=== PATIENT | male | born 1930 | race Caucasian/White ===

== ENCOUNTER 2016-07-22 17:51 | Inpatient (IN) | payer OTHER ==
[~2016-07-22] VITALS: Ht 175.3 cm; Wt 67.3 kg
--- NOTE | ~2016-07-22 | H ---
[facility] [place] [address] HISTORY AND PHYSICAL Name: FELICITAROBERTO [place] Room #: 537-P ADM IN M.R.#: [id number] Admission: 07/22/16 Attend Phys: Wolf Demarco MD Discharge: Date of : 31 Report #: [id number] THIS REPORT FOR: //name// CC: Doug Demarco DATE OF SERVICE: 07/23/2016 DATE OF ADMISSION: 07/22/2016 CHIEF COMPLAINT: Right knee pain. HISTORY OF PRESENT ILLNESS: The patient is an 86-year-old male who states he fell out of his home. There is a chairlift and it was not in a proper position for him to get on to it and he fell about a little over 2 feet on to the ground. He did not strike his head. He did not lose conscious. He tried to catch himself and landed on his right foot causing pain in the right knee. PAST MEDICAL HISTORY: Significant for: 1. Atrial fibrillation. 2. Congestive heart failure. 3. He has an ICD placement. 4. Coronary artery disease, bypass x 2 in 2009. 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 6. Glaucoma. 7. Corneal transplant. 8. He has had a right knee surgery with a spacer in the past. 9. Melanoma right ear. 10. Pneumothorax. 11. Prior CVA. 12. Cardiomyopathy. 13. Allergies. 14. BPH. MEDICATIONS: Include Azelastine 2 puffs daily, Eliquis 2.5 mg b.i.d., fluorometholone ophthalmic drops, MiraLax daily, multivitamin daily, glucosamine daily, metoprolol 12.5 mg b.i.d., Rapaflo 8 mg at bedtime, Flonase daily, omeprazole 20 mg b.i.d., prednisone 10 mg a day, amiodarone 200 mg daily, simvastatin 40 mg a day, Tylenol p.r.n. ALLERGIES: ASPIRIN and MORPHINE. SOCIAL HISTORY: He is , lives with his . He is a nonsmoker, drinks alcohol occasionally. No recreational drugs. REVIEW OF SYSTEMS: [facility] [address] [place] [address] HISTORY AND PHYSICAL Name: ROBERTO RENEE Room #: 537-P [facility] IN .R.#: [id number] Admission: 07/22/16 Attend Phys: Wolf Demarco MD Discharge: Date of : 31 Report #: [id number] CONSTITUTIONAL: No fever or chills. HEENT: No headaches or visual changes. CHEST: No chest pains or tightness in the chest. No cough or sputum production. GASTROINTESTINAL: No nausea, vomiting, diarrhea or constipation. GENITOURINARY: No burning or frequency. He does have nocturia. EXTREMITIES: He has the right knee pain, no wounds. SKIN: No rashes or wounds. NEUROLOGIC: No new numbness or weakness. PHYSICAL EXAMINATION: VITAL SIGNS: In the ER, blood pressure 144/70, pulse is 71, respiratory rate 20. He is afebrile, O2 sats 99% on room air. GENERAL: Awake and alert in no acute distress. He is a fair historian. His was present for the exam this morning as well. His mucous membranes are moist. NECK: Supple without adenopathy, thyromegaly or bruits. CHEST: Clear to auscultation. CARDIOVASCULAR: He has an irregular rate with a rhythm of 90. ABDOMEN: Soft, there are no masses. Bowel sounds are active. EXTREMITIES: Show no edema. The pulses are intact. He has normal sensation in the feet. The right knee is in a brace currently. IMAGING: His x-ray shows a proximal nondisplaced tibial plateau fracture. There apparently is a T-shape to the fracture. ASSESSMENT: Right tibial plateau fracture in an elderly male after a fall. PLAN: 1. We will admit, consult ortho. He is unable to ambulate. It is really unsafe, may need skilled therapy versus rehab. He has been on Eliquis. We will hold that. I doubt he is a surgical candidate, but if need be, we can hold the Eliquis until ortho decides to do surgery or not. 2. Atrial fibrillation. Resume his metoprolol and amiodarone. I will resume Eliquis once we have cleared him from needing surgery. 3. Reflux peptic ulcer disease. Resume Protonix in place of Prilosec. 4. BPH. We will place him on tamsulosin since we do not have Rapaflo here. Monitor his urine output. <ELECTRONICALLY SIGNED> By: Wolf Demarco MD 07/25/16 0855 0717 08 Wolf Demarco MD /nt
--- NOTE | ~2016-07-22 | D ---
[facility] [place] [address] [place] [address] DISCHARGE SUMMARY Name: FELICITAROBERTO MO Room #: 537-P [facility] IN M.R.#: [id number] Admission: 07/22/16 Attend Phys: Wolf Demarco MD Discharge: 07/25/16 Date of : 31 Report #: [id number] THIS REPORT FOR: //name// CC: Doug Demarco DATE OF SERVICE: 07/25/2016 ADMIT DIAGNOSIS: Right tibial plateau fracture. DISCHARGE DIAGNOSES: 1. Right tibial plateau fracture. 2. Chronic atrial fibrillation. 3. Benign prostatic hypertrophy. 4. Hyperlipidemia. HOSPITAL COURSE: The patient was admitted after suffering a fall at home that was mechanical fall, he experienced right tibial plateau fracture. He was admitted due to the inability to take care of himself and stand. He was seen by ortho and felt did not have an operative injury. They felt that therapy and immobilization was appropriate for him. The patient deemed to be too unstable and unsafe to go home. He was arranged for transferred to rehab facility at [place]. He will be discharged today to rehab. He will be on his home medicines including amiodarone 200 mg a day, simvastatin 20 mg a day, Eliquis 2.5 mg b.i.d. fluorometholone drops, MiraLax daily, multivitamin daily, glucosamine daily, metoprolol 12.5 mg b.i.d., Rapaflo 8 mg at bedtime, Flonase 2 puffs in the nostrils daily, azelastine daily, omeprazole 20 mg b.i.d., Tylenol p.r.n., prednisone 10 mg a day and oxycodone 7.5/325 q. 4 hours p.r.n. He will have regular diet. Activity as tolerated per PT and OT. By: 0817 1023 Wolf Demarco MD /nt
--- NOTE | ~2016-07-22 | HC ---
[facility] [address] [place] [address] CONSULTATION Name: ROBERTO RENEE Room #: 537-P ADM IN M.R.#: [id number] Admission: 07/22/16 Attend Phys: Wolf Demarco MD Discharge: Date of : 31 Report #: [id number] THIS REPORT FOR: //name// CC: Doug Demarco DATE OF SERVICE: 07/23/2016 SERVICE: Orthopedics facility at [place]. REQUESTING PHYSICIAN: Dr. Wolf Demarco. REASON FOR CONSULTATION: Right proximal tibia fracture. PAST MEDICAL HISTORY: Atrial fibrillation, congestive heart failure, ICD placement, coronary artery disease with previous bypass, cardiac myxoma, glaucoma, corneal transplant, right knee arthritis and surgery, melanoma, pneumothorax, stroke and cardiomyopathy. SURGICAL HISTORY: Right knee medial compartment arthroplasty approximately 14 years ago, coronary artery bypass graft surgery x2 in 2009, cardiac defibrillator placement. CURRENT MEDICATIONS: In the hospital, tamsulosin, prednisone, metoprolol, fluticasone, amiodarone, fluorometholone ophthalmic, oxycodone, Tylenol and pantoprazole. ALLERGIES: MORPHINE AND ASPIRIN. SOCIAL HISTORY: The patient is and is a community ambulator. He lives with his . There is no tobacco, alcohol or drug use. REVIEW OF SYSTEMS: Positive for right knee pain. No fever, chills, nausea, vomiting, diarrhea, chest pain, shortness of breath, GI or abdominal complaints. No recent complaints. HISTORY OF PRESENT ILLNESS: The patient is an 86-year-old male who sustained a fall yesterday, which resulted in a right lateral tibial plateau fracture. He was placed in a bulky Starkey dressing and was admitted to Dr. Demarco's service. The patient has relevant history of a right knee unicompartmental arthroplasty with a mobile bearing on the medial side approximately 14 years ago. The patient reports tolerable right knee pain at the time of evaluation, although has been unable to bear weight. PHYSICAL EXAMINATION: VITAL SIGNS: Temperature is 36.9, pulse 69, respiratory rate 18, blood pressure [address] [address] CONSULTATION Name: ROBERTO RENEE [place] Room #: 537-P [facility] IN ..#: [id number] Admission: 07/22/16 Attend Phys: Wolf Demarco MD Discharge: Date of : 31 Report #: [id number] 137/64. GENERAL: Alert and oriented, no acute distress, healthy appearing gentleman who appears his stated age. He is lying supine in hospital bed. EXTREMITIES: Left lower extremity demonstrates no evidence of acute orthopedic injury. He is neurovascularly intact distally. Right lower extremity: the patient is in a bulky Starkey dressing with a knee immobilizer. He has palpable pulse distally. There are no skin changes distally swelling is not present. Distally, he is motor and sensory intact on the dorsum and plantar surface of the foot. Examination of the knee is deferred due to the presence of the bulky Starkey dressing. IMAGING DATA: X-rays, two views of the knee and x-rays of the tibia demonstrate a right lateral tibial plateau fracture without significant displacement. There is a medial compartment arthroplasty present. A CT scan: The CT scan was reviewed and shows capable alignment of the fracture fragments in the articular surface. There is no significant amount of articular step-off. The arthroplasty component on the medial knee is a mobile bearing unit essentially functioning as a spacer which shows no evidence of acute loosening or complication related to his recent injury. IMPRESSION: An 86-year-old male with extensive cardiac history status post same level fall with a right lateral tibial plateau fracture, with minimal displacement and associated previous medial knee unicompartmental arthroplasty. PLAN: I think this can be successfully treated nonoperatively. I recommend he continue the bulky Starkey dressing (cast padding with knee immobilizer). I explained to him and his family that he can split the padding longitudinally on the anterior aspect of the leg so he can take the leg out of the dressing and perform hygiene/shower. He can go back into the immobilizer when he is upright and awake. We will have physical therapy evaluate him and he would likely benefit from period of inpatient rehabilitation stay. <ELECTRONICALLY SIGNED> By: Doug Emerson MD 07/24/16 0712 1814 0350 Doug Emerson MD /nt
--- NOTE | ~2016-07-22 | HC ---
[facility] [place] [address] [address] [place] [address] CONSULTATION Name: ROBERTO RENEE Room #: 537-P ADM IN M.R.#: [id number] Admission: 07/22/16 Attend Phys: Wolf Demarco MD Discharge: Date of : 31 Report #: [id number] THIS REPORT FOR: //name// CC: Doug Demarco HISTORY OF PRESENT ILLNESS: The patient is an 86-year-old white male who fell out of his chair lift at home. Apparently was not in the proper position and lean on his right leg. He was admitted and noted to have a right lateral tibial plateau fracture. He was seen by Orthopedics and is to be nonweightbearing for 6-8 weeks. We are seeing him in rehabilitation medicine consultation. His past medical history includes a prior CVA in 1989, for which he does have some residual left-sided weakness. It affects more his left upper extremity, although he will tend to drag his left lower extremity at times when he fatigues. PAST MEDICAL HISTORY: Also includes atrial fibrillation, congestive heart failure, ICD placement, coronary artery bypass grafting x 2 in 2009, myxoma of the right ventricle, glaucoma, right knee surgery noted to be apparently a unicompartmental arthroplasty, pneumothorax, cardiomyopathy. MEDICATIONS: Please see the full medication listing. ALLERGIES: ASPIRIN and MORPHINE. SOCIAL HISTORY: , lives with his , nonsmoker, occasional alcohol. They have remodeled the house. There is a wheelchair lift into the house, the bathroom is actually fully wheelchair accessible and then he has a stair glide to go up and down the steps. REVIEW OF SYSTEMS: Did not offer any current complaints of chest pain, shortness of breath, abdominal discomfort. No significant pain, although he notes somewhat increased activity. No other focal extremity complaints. PHYSICAL EXAMINATION: GENERAL: An 86-year-old white male in no obvious distress. VITAL SIGNS: Last recorded temperature 98.2, pulse 70, respirations 16, blood pressure 100/52. GENERAL: The patient is alert, pleasant. HEENT: Appeared to be benign. NEUROLOGIC: Cranial nerves are grossly intact. Facies are symmetric. He has functional range of motion of both upper extremities. He might have a little bit of weakness of that left upper extremity grade 4-/5 compared to the right, which is more of a 4/5. Left lower extremity strength is probably a grade 4 to 4-/5. Right lower extremity, he is in a knee immobilizer. He can move the right ankle. He is max assist with sit to stand. He has fair minus sitting balance. [address] [address] CONSULTATION Name: ROBERTO RENEE Room #: 537-P [facility] IN .R.#: [id number] Admission: 07/22/16 Attend Phys: Wolf Demarco MD Discharge: Date of : 31 Report #: [id number] ASSESSMENT: An 86-year-old white male with the following problem list: 1. Right lateral tibial plateau fracture being treated nonoperatively, nonweightbearing 6-8 weeks. 2. 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 3. History of atrial fibrillation. 4. Congestive heart failure. 5. ICD placement. 6. Coronary artery disease with bypass x 2 in 2009. 7. Corneal transplant. 8. Pneumothorax. 9. Cardiomyopathy. PLAN: The patient unfortunately does not meet [address] rehabilitation criteria. Discussion with the and with case management. The patient has not desired to go to a nursing facility in the past. We will have the therapist do some trialing with the patient and with mechanical lift transfers. If they do not want to go to a nursing facility, use of a mechanical lift is probably the only realistic way to get him back to the home setting. Fortunately, things are wheelchair accessible. Orders are put in for physical therapy to work on this. Thank you for asking us to assist in this patient's care. By: 1207 1432 Kenton Marques MD /nt
[~2016-07-22 17:51] MED LIST: ALDACTONE25 MG PO; APAP500 PO; APAP650 PO; AZELASTINE137 MCG/0. NASAL; CENTRUM SILVER1 EAC2 PO; COLACE100 MG PO; COSOPT OCUMETER10 M1 OP; DOXYCYCLINE 10100 MG PO; ELIQUIS5 MG PO; FLOMAX0.4 MG PO; FLONASE 0.05%50 MCG NASAL; FLORINEF ACETA0.1 MG PO; FML 0.1% OP; GLUCOSAMINE &1 EAC1 PO; GLUCOSAMINE HC500 MG PO; LOPRESSOR 12.12.5 MG PO; MIRALAX17 G1 PO; NORCO 5-325 TA1 EACH PO; OMEPRAZOLE 20 M20 MG PO; PACERONE 200 M200 M1 PO; PROMETH-CODEIN 65 ML PO; PROMETHAZINE/C118 ML PO; RAPAFLO8 MG PO; SIMVASTATIN40 MG PO; TOPROL XL25 MG PO; TRAMADOL 50 MG50 MG PO; TYLENOL PM EX-1 EACH PO
[2016-07-22 17:52] VITALS: BP 144/70
[2016-07-22] MEDS ORDERED: PREDNISONE 10 M10 MG PO (17:57)
[2016-07-22] MEDS ORDERED: RAPAFLO8 MG PO (18:01)
[2016-07-22 21:41] LABS: ABSOLUTE NEUTROPHILS 9.2 thou/uL (1.4-8.2); BASOPHILS 1.1 % (0.0-2.0); EOSINOPHILS 0.3 % (0.0-3.0); HEMOGLOBIN 11.6 gm/dL (14.0-18.0); LYMPHOCYTES 18.4 % (24.0-44.0); MCH 35.4 pg (26.0-34.0); MCHC 34.2 g/dL (28.0-37.0); MCV 103.4 fL (80.0-100.0); MONOCYTES 7.9 % (1.0-8.0); PLATELET COUNT 239 thou/uL (150-400); POLYS 72.3 % (36.0-66.0); RBC 3.29 mil/uL (4.50-6.00); RDW 15.3 % (10.5-14.5); WBC 12.8 thou/uL (4.0-11.0)
[2016-07-22 21:43] LABS: MANUAL DIFF NO
[2016-07-22 21:48] LABS: CALCIUM 9.2 mg/dL (8.5-10.1); CREATININE 0.9 mg/dL (0.6-1.3); POTASSIUM 4.5 mmol/L (3.5-5.1)
[2016-07-22 21:56] VITALS: BP 139/79
[2016-07-23 08:17] VITALS: BP 130/56
[2016-07-23 12:00] VITALS: BP 137/64
[2016-07-23 20:54] VITALS: BP 146/65
[2016-07-24 00:05] VITALS: BP 150/75
[2016-07-24 04:20] VITALS: BP 135/63
[2016-07-24 08:51] VITALS: BP 100/52
[2016-07-24 20:45] VITALS: BP 119/61
[2016-07-25 05:44] VITALS: BP 120/66
[2016-07-25 07:37] VITALS: BP 136/62
[2016-07-25] MEDS ORDERED: OXYCODONE-APAP1 EAC6 PO (08:13)
== END 2016-07-25 10:13 | DRG 563 ==
LOC: ER 17:51 → EROBS 20:56 → 4W 20:56 → 5S 07-23 17:16
PROVIDERS: Nurse Practitioner
DX: S82.144A Nondisplaced bicondylar fracture of right tibia, initial encounter for closed fracture (principal); I42.9 Cardiomyopathy, unspecified; I42.0 Dilated cardiomyopathy; J93.9 Pneumothorax, unspecified; I50.9 Heart failure, unspecified; I25.10 Atherosclerotic heart disease of native coronary artery without angina pectoris; H40.9 Unspecified glaucoma; N40.0 Benign prostatic hyperplasia without lower urinary tract symptoms; E78.5 Hyperlipidemia, unspecified; W18.39XA Other fall on same level, initial encounter; Z94.7 Corneal transplant status; Z88.6 Allergy status to analgesic agent; Z95.810 Presence of automatic (implantable) cardiac defibrillator; Z85.820 Personal history of malignant melanoma of skin; Z86.73 Personal history of transient ischemic attack (TIA), and cerebral infarction without residual deficits; Z95.1 Presence of aortocoronary bypass graft; Y93.89 Activity, other specified; Y92.098 Other place in other non-institutional residence as the place of occurrence of the external cause; Y99.8 Other external cause status
CPT/HCPCS: 10040; 10785

== ENCOUNTER 2016-08-11 18:04 | Inpatient (IN) | payer OTHER ==
[~2016-08-11] VITALS: Ht 175.3 cm; Wt 63.5 kg
--- NOTE | ~2016-08-11 | HC ---
[facility] [place] [address] [place] [address] CONSULTATION Name: ROBERTO RENEE Room #: 432-P [facility] IN M.R.#: [id number] Admission: 08/11/16 Attend Phys: Wolf Demarco MD Discharge: 08/14/16 Date of : 31 Report #: [id number] THIS REPORT FOR: //name// CC: Robb Demarco DATE OF SERVICE: 08/14/2016 HISTORY OF PRESENT ILLNESS: This patient who has presented with chronic obstipation and constipation has now resolved his abdominal pain with obstipation. He is feeling better. He has no abdominal complaints today. He denies nausea and vomiting and is passing flatus and stools without difficulty. PHYSICAL EXAMINATION: GENERAL: Demonstrates no tenderness. NECK: No distention. ASSESSMENT AND PLAN: Clinical resolution of the patient's abdominal pain with chronic constipation secondary to narcotic use for treatment of his tibial plateau fracture of the right lower extremity. The patient may continue his high fiber diet and add a stool softener laxative routine to his daily regimen to avoid the chronic constipation tissue. <ELECTRONICALLY SIGNED> By: Kenton Crespo MD, FACS 08/17/16 1704 1624 [id number] Kenton Crespo MD, FACS /nt
--- NOTE | ~2016-08-11 | HC ---
[facility] [place] [address] CONSULTATION Name: ROBERTO RENEE Room #: 432-P ADM IN M.R.#: [id number] Admission: 08/11/16 Attend Phys: Wolf Demarco MD Discharge: Date of : 31 Report #: [id number] THIS REPORT FOR: //name// CC: Robb Demarco MD DATE OF SERVICE: 08/12/2016 PATIENT OF: Dr. Wolf Demarco and Dr. Robb Rivera. CHIEF COMPLAINT: The patient is interviewed along with his and son. He is a very pleasant 86-year-old white male who came with complaint of increasing abdominal distention. He does not have any abdominal pain at this time, but does described constipation and was thought last night that he might have a sigmoid volvulus, but followup films this morning showed that has resolved. There may be a possible linear small area of free air; however, this is uncertain as this could be a layer of fat on his lateral decubitus of the abdomen. The patient has a nonsurgical abdomen at this time. He is nonacute. He denies abdominal pain, tenderness to palpation. There is no rebound. There is no guarding. Bowel sounds are positive. PAST MEDICAL HISTORY: Significant for multiple heart problems. 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 It was removed from the aortic valve and the aortic valve was repaired. 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 He has no history of seizures or blackouts. The patient does have a history of coronary artery disease and had coronary artery bypass grafting done times 2. He also has a cardiomyopathy. He has an implanted pacer defibrillator. He has a history of atrial fibrillation and he is on Eliquis, right now his heart is in a paced rhythm and is regular. The patient also had a history of a pneumothorax during pacemaker insertion that pacemaker was then later removed and a pacer defibrillator was placed. He has a history of glaucoma. 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 He has had several bone fractures recently due to falls. He had some rib fractures on the left side from a fall and then he fell on the basement and fractured his sacrum, this was fused with cement and apparently stabilized and does not bother him much anymore. He does have lower back pain. Currently, he has a new nondisplaced right tibial plateau fracture with spiral fracture of the same bone and it is being treated with a splint only as it was a nondisplaced fracture. He has a history of hyperlipidemia. He has a left renal cyst and had urolithiasis 6 months ago with hematuria. He has a history of a colon polyp in the distant past and he has had 2 normal colonoscopy since then, but his last [facility] [address] [place] [address] CONSULTATION Name: ROBERTO RENEE Room #: 432-P [facility] IN M.R.#: [id number] Admission: 08/11/16 Attend Phys: Wolf Demarco MD Discharge: Date of : 31 Report #: [id number] colonoscopy was 10 years ago. He has microcytic anemia and elevated alkaline phosphatase of uncertain etiology and elevated lipase of uncertain etiology and he has history of arthritis in his neck, knees and lower back. He also has edema of the right foot, which is the leg with the tibial fracture. His assures me that the edema in that foot has decreased significantly. He is at high risk of deep vein thrombosis, but he is on Eliquis now. PAST SURGICAL HISTORY: Significant for the removal of 2 atrial myxomas tumors. He has had a hernia repair. He has had a glaucoma pump in his right eye. 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 He has an unispacer in his right knee. He had cataract removed from his left eye then, melanoma removed from the back of his right ear, then he had removal of an atrial myxoma that was attached to his aortic valve that was removed and repaired and the valve was repaired. Then, he had coronary artery bypass grafting and another hernia repair. He had a pneumothorax from pacemaker placement that pacer was removed and a cardioverted defibrillator was implanted and later moved to a site under some muscle. He has a leaky heart valve, probably the aortic valve. He had urolithiasis that spontaneously resolved in 2016. He is hard of hearing. He has a history of stage 3 congestive heart failure. 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 ALLERGIES: ASPIRIN and MORPHINE. MEDICATIONS: At the current time include prednisone 10 mg daily, codeine and promethazine as needed for cough, Rapaflo for urinary retention, amiodarone, metoprolol, simvastatin, Eliquis, he has some FML eye drops, omeprazole, fluticasone propionate nasal spray, Colace, azelastine, Tylenol PM, glucosamine chondroitin, multiple vitamins and MiraLax. SOCIAL HISTORY: He does not smoke. He does drink some alcohol, not excessively, just on special occasions. FAMILY HISTORY: Negative for colon polyps and colon cancers. REVIEW OF SYSTEMS: He denies any dysphagia, odynophagia, or gastroesophageal reflux. He does have a hiatal hernia. He denies any history of peptic ulcer disease. His weight has gone down, his usual weight is about 155-160 and current weight is 134 he says, weight in the hospital was 140 when we weighed him. He denies any hematemesis, hematochezia, or melena. He denies having any diarrhea recently. He does have chronic constipation pretty much even before he started taking pain pills for his fractured leg. He has had a decreased appetite recently and this also existed before his leg fracture. He has been on 2 course of prednisone, the second one is ongoing right now just since the beginning of year to try to encourage him to eat and the prednisone does [facility] [address] [place] [address] CONSULTATION Name: VÍCTORROBERTO TRINA Room #: 432-P ADM IN M.R.#: [id number] Admission: 08/11/16 Attend Phys: Wolf Demarco MD Discharge: Date of : 31 Report #: [id number] stimulate his appetite, but unfortunately when he stopped the prednisone, his appetite drops back down again. He denies any abdominal pain, nausea, or vomiting. He denies any history of jaundice, hepatitis, cholelithiasis, cholecystitis, or pancreatitis. Last colonoscopy was greater than 10 years ago as mentioned above, but he did have a history of 1 colon polyp that had to be followed up every 5 years. PHYSICAL EXAMINATION: GENERAL: Reveals a well-developed, well-nourished 86-year-old white male, in no obvious distress at the time of the examination. He is awake, alert, oriented x4 and cooperative and very pleasant to converse with. HEENT: He is normocephalic, atraumatic and anicteric. HEART: Rate and rhythm are regular with a normal S1 and S2. The patient is in regular rhythm at this time, but he has a bundle-branch block and looks like it is paced rhythm. LUNGS: Clear to auscultation in all mccall. The abdomen is soft, mildly distended, tympanic to percussion, and it is nontender. There is no rebound or guarding. EXTREMITIES: Warm and dry. No peripheral cyanosis or clubbing. The patient does have edema of his right foot and ankles, probably related to his tibial fracture. His says that this edema has gone down to about half of what it was previously. NEUROLOGIC: He appears grossly intact except for the numbness in his distal left upper extremity from the stroke that he had. SIGNIFICANT LABORATORY DATA: BMP is fairly normal. His lipase was elevated at 474 on admission. AST and ALT are normal. The alk phos is elevated mildly at 151. His CBC shows a white count of 7.9, hemoglobin 10.0, hematocrit 29.3, MCV is 104, MCH 35, MCHC 34, RDW 15.6, platelets 269,000, he has got 19% lymphocytes, which is low and 73% neutrophils. Urinalysis shows trace ketones and trace blood. Initially on x-ray and CT, it was thought the patient probably had a sigmoid volvulus, but followup abdominal exam and abdominal x-rays showed that this has either resolved or it was not there to begin with. IMPRESSION: 1. Obstipation, constipation without evidence of sigmoid volvulus on followup films today, probably related to pain medications that the patient has to take for recent right tibial fracture. His rectal exam is negative for palpable masses by me, there was no stool in the rectal vault. The prostate was firm and smooth and enlarged. 2. Loss of appetite over the past year. The patient the use of course of steroids to increase his appetite. This works temporarily only. He has lost over 20 pounds unintentionally in the last year. 3. Cardiac history is very significant for 3 atrial myxomas that have been removed. His aortic valve was affected by one of the myxomas his said and also required a surgery for removal of the tumor from the valve and then repair [facility] [address] [place] [address] CONSULTATION Name: ROBERTO RENEE Room #: 432-P ADM IN M.R.#: [id number] Admission: 08/11/16 Attend Phys: Wolf Demarco MD Discharge: Date of : 31 Report #: [id number] of the aortic valve. He has a history of cardiomyopathy. He has got a leaky valve now and he has a history of coronary artery bypass grafting times 2. He has had a stroke in the past related to the atrial myxomas that left him with left upper extremity numbness distally from the elbow down. He has an implantable pacer defibrillator and his rhythm is paced and regular at this time. He has a history of atrial fibrillation, the patient is on Eliquis. 4. History of pneumothorax during pacemaker insertion. 5. Glaucoma. 6. History of melanoma of the right ear. 7. Rib fractures on the left side in a fall. 8. The patient fell in basement later and fractured his sacrum and this was fused later with cement. He still has a low back pain. 9. Current nondisplaced right tibial plateau fracture with the spiral fracture of the same bone, treating with splint only. 10. History of hyperlipidemia. 11. History of left renal cyst and had urolithiasis 6 months ago with hematuria. 12. History of colon polyps in the distant past. The patient had 2 normal colonoscopies since then, the last one was 10 years ago. 13. Macrocytic anemia. 14. Elevated alkaline phosphatase, uncertain etiology. 15. Elevated lipase. 16. Arthritis in his back, knees, and neck. 17. Edema of his right foot that is improving, it is probably related to the fracture of the right tibial plateau. He is high risk of deep venous thrombosis, but the patient is on Eliquis. RECOMMENDATIONS: My recommendations are as follows: 1. We would give him tap water enemas today to see if we can stool distally. We will start him on MiraLax b.i.d. I do not see any evidence of ileus or obstruction at this time. His abdominal exam is completely benign except for the tympany to percussion, no acute abdomen and no emergent colonic decompression were needed. I discussed this with Dr. Crespo. 2. I think that since his weight loss is an ongoing issue for the past year with loss of appetite, he will need some sort of GI evaluation to include EGD and probably colonoscopy, the issue right now is his right leg brace and whether or not the patient and family wished to pursue this further in the future considering the risks and benefits, this can be done as an outpatient. 3. We will check a GGTP, B12, folic acid, and TSH. 4. If the GGTP is elevated, we will ask for an ultrasound of the liver to evaluate for possible masses or other abnormalities. 5. We will recheck a lipase in the morning. 6. We will start him on proton pump inhibitors if he is not already on them. [address] [address] CONSULTATION Name: VÍCTORROBERTO Room #: 432-P ADM IN M.R.#: [id number] Admission: 08/11/16 Attend Phys: Wolf Demarco MD Discharge: Date of : 31 Report #: [id number] Thank you very much once again for allowing me to participate in his care, Dr. Demarco. <ELECTRONICALLY SIGNED> By: Tracy Patricio DO 08/12/16 1352 1058 1341 Tracy Patricio DO /nt
--- NOTE | ~2016-08-11 | HC ---
[facility] [place] [address] CONSULTATION Name: FELICITASALONINBAROBERTO Room #: 432-P [facility] IN M.R.#: [id number] Admission: 08/11/16 Attend Phys: Wolf Demarco MD Discharge: 08/14/16 Date of : 31 Report #: [id number] THIS REPORT FOR: //name// CC: Robb Demarco DATE OF SERVICE: 08/11/2016 HISTORY OF PRESENT ILLNESS: I have been asked to evaluate this 86-year-old male who has presented to the emergency room with chief complaint of abdominal pain, obstipation, constipation. The patient has recently undergone a tibial fracture, went to rehab unit and subsequently at home. He has not stooled for the past 2-3 days according to his . He has passed some gas, but has been having increasing abdominal pain with some abdominal distention. They have tried multiple medications at home, but they have not been successful in initiating . PAST MEDICAL HISTORY: Consistent with atrial myxoma, hernia, glaucoma, corneal transplant, melanoma of the ear, atrial valve repair, inguinal hernia repair, pacemaker placement. MEDICATIONS: Include Eliquis, fluorometholone, MiraLax, glucosamine, metoprolol 12 mg b.i.d., Flonase, Rapaflo, omeprazole, Phenergan, amiodarone, simvastatin. ALLERGIES: ASPIRIN and MORPHINE. PAST SURGICAL HISTORY: He denies previous abdominal surgery, only inguinal hernia repair. SOCIAL HISTORY: , living at home with his , and does not smoke cigarettes. Drinks occasional alcohol. REVIEW OF SYSTEMS: A 10-point review of systems essentially noncontributory except for the recent change in his abdominal pain with some abdominal distention. PHYSICAL EXAMINATION: GENERAL: He is alert, cooperative, is at the bedside. NG tube is in place to suction, IV fluids, son is at the bedside. He is afebrile. VITAL SIGNS: Within normal limits. NECK: Supple, no adenopathy, no bruits. LUNGS: Clear at the bases bilaterally. CARDIOVASCULAR: Regular rate and rhythm. ABDOMEN: Mild distention. Bowel sounds are present, no rebound or guarding, no masses are palpable. [address] [address] CONSULTATION Name: ROBERTO RENEE [place] Room #: 432-P [facility] IN M.R.#: [id number] Admission: 08/11/16 Attend Phys: Wolf Demarco MD Discharge: 08/14/16 Date of : 31 Report #: [id number] Review of the laboratory demonstrates laboratory within normal limits. White count is 6900. CT scan is consistent with significant stool throughout the colon from the cecum to the rectal region. Gas is present throughout the colon. There is no evidence of dilated loops of small bowel. DIAGNOSTIC IMPRESSION: Obstipation and constipation secondary to narcotic use for the recent leg fracture. The patient also has significant immobility, being at bed rest in recent weeks. Lengthy history of chronic constipation, which has been worsened by his recent medical illnesses associated with need for narcotic pain control. I would recommend laxatives and repeat KUB and upright as indicated. The patient does not have an acute abdomen at this time. Thank you for allowing us to participate in his care. <ELECTRONICALLY SIGNED> By: Kenton Crespo MD, FACS 08/17/16 1704 1621 0024 Kenton Crespo MD, FACS /nt
--- NOTE | ~2016-08-11 | H ---
[facility] [place] [address] HISTORY AND PHYSICAL Name: NALDOROBERTO DUENAS Room #: 432-P [facility] IN M.R.#: [id number] Admission: 08/11/16 Attend Phys: Wolf Demarco MD Discharge: 08/14/16 Date of : 31 Report #: [id number] THIS REPORT FOR: //name// CC: Robb Demarco DATE OF SERVICE: 08/12/2016 CHIEF COMPLAINT: Abdominal pain. HISTORY OF PRESENT ILLNESS: The patient is an 86-year-old male, well known to me, who had a recent tibial plateau fracture, had gone to rehab unit and then home. He was not having bowel movements at home for the last several days and increasing abdominal pain. They tried multiple medicines at home, without relief. The patient was having some nausea as well with that. PAST MEDICAL HISTORY: His past history is significant for a recent right tibial plateau fracture, 2 atrial myxoma, hernia, glaucoma, cornea transplant, melanoma on his ear, atrial valve repair, hernia repair and pacemaker placement and removal. MEDICATIONS: Azelastine, Eliquis, fluorometholone, MiraLax, multiple vitamin, glucosamine, metoprolol 12.5 mg b.i.d., Flonase daily, prednisone 10 mg a day, Rapaflo one daily, omeprazole 40 mg b.i.d., Phenergan with codeine p.r.n., amiodarone 200 mg a day, simvastatin 20 mg a day and Tylenol p.r.n. ALLERGIES: ASPIRIN and MORPHINE. SOCIAL HISTORY: He is and lives with . He is a nonsmoker. Drinks occasional alcohol. REVIEW OF SYSTEMS: CONSTITUTIONAL: No fever or chills. HEENT: No headaches or visual changes. CHEST: No chest pains, tightness in chest, short of breath, cough or sputum production. GASTROINTESTINAL: He has nausea and the constipation. No black stools or blood in stool. GENITOURINARY: No burning or frequency. EXTREMITIES: No new swelling. He does have the right knee injury; it is in a brace. No change in this pain from that. SKIN: No new wounds or lesions. PHYSICAL EXAMINATION: VITAL SIGNS: In the ER, blood pressure 142/70, pulse 74 and respiratory rate [address] [address] HISTORY AND PHYSICAL Name: ROBERTO RENEE Room #: 432-P [facility] IN M.R.#: [id number] Admission: 08/11/16 Attend Phys: Wolf Demarco MD Discharge: 08/14/16 Date of : 31 Report #: [id number] 16. He is afebrile. GENERAL: The patient is currently awake and alert, in no acute distress. He is conversive and good historian. HEENT: His mucous membranes are moist. NECK: Supple. CHEST: Clear to auscultation. CARDIOVASCULAR: Regular rhythm. No S4. ABDOMEN: Soft. He is distended. Bowel sounds are present. There is no rebound or guarding. No hepatosplenomegaly. EXTREMITIES: Show pulses intact in both feet. The right knee is in a brace. LABORATORY DATA: Sodium 139, potassium 3.8, chloride 105, bicarbonate 26, BUN 19, creatinine 0.9, glucose 105 and calcium is 8.8. Total bilirubin 0.3, D bili 0.1, AST 18, ALT 31. Albumin 3.0, lipase 474. WBC 6.9, hemoglobin 10.6, hematocrit 30.6, platelet count 288,000, segs [address] scan of the abdomen and pelvis showed significant amount of stool, questionable versus a twist in the bowel. A repeat scan today shows no volvulus and just constipation. The patient was seen by surgery, Dr. Crespo and by GI, Dr. Patricio. He has been getting enemas, had Dulcolax and some MiraLax. Hopefully, with release of the stool, feel better. IMPRESSION: 1. Recent tibial plateau fracture. We will go ahead and consult ortho to reevaluate as he has seen him in the past. 2. History of coronary artery disease. We will resume his home meds. <ELECTRONICALLY SIGNED> By: Wolf Demarco MD 08/16/16 0844 1251 1406 Wolf Demarco MD /nt
[~2016-08-11 18:04] MED LIST changes: +OXYCODONE-APAP1 EAC6 PO; +PREDNISONE 10 M10 MG PO
[2016-08-11 18:06] VITALS: BP 142/70
[2016-08-11 18:41] LABS: BASOPHILS 0.4 % (0.0-2.0); EOSINOPHILS 0.6 % (0.0-3.0); HEMATOCRIT 30.6 % (42.0-52.0); HEMOGLOBIN 10.6 gm/dL (14.0-18.0); MCH 36.1 pg (26.0-34.0); MCHC 34.6 g/dL (28.0-37.0); MCV 104.2 fL (80.0-100.0); MONOCYTES 7.2 % (1.0-8.0); PLATELET COUNT 288 thou/uL (150-400); POLYS 72.8 % (36.0-66.0); RBC 2.93 mil/uL (4.50-6.00); RDW 15.5 % (10.5-14.5); WBC 6.9 thou/uL (4.0-11.0)
[2016-08-11 18:43] LABS: MANUAL DIFF NO
[2016-08-11 18:50] LABS: ANION GAP 8 mmol/L (7-16); BUN 19 mg/dL (7-18); CALCIUM 8.8 mg/dL (8.5-10.1); CHLORIDE 105 mmol/L (98-107); CO2 26 mmol/L (21-32); CREATININE 0.9 mg/dL (0.7-1.3); GLUCOSE 105 mg/dL (74-106); POTASSIUM 3.8 mmol/L (3.5-5.1); SODIUM 139 mmol/L (136-145)
[2016-08-11 18:54] LABS: ALKALINE PHOSPHATASE 151 U/L (46-116); DIRECT BILIRUBIN < 0.1 mg/dL (<0.1-0.3); SGOT 18 U/L (15-37); SGPT 31 U/L (30-65); TOTAL BILIRUBIN 0.3 mg/dL (<0.1-1.0); TOTAL PROTEIN 6.3 g/dL (6.4-8.2)
[2016-08-11] MEDS ORDERED: PROMETHAZINE/C118 ML PO (19:41)
[2016-08-11] MEDS ORDERED: COLACE100 MG PO (19:44)
[2016-08-11] MEDS ORDERED: SALINE NASAL SP30 ML INH (19:46)
[2016-08-11] MEDS ORDERED: ACETAMINOPHEN1 EAC1 PO (19:48)
[2016-08-11 19:53] LABS: URINE BILIRUBIN NEGATIVE (Negative); URINE BLOOD TRACE (Negative); URINE COLOR YELLOW; URINE GLUCOSE-RANDOM* NEGATIVE (Negative); URINE KETONES TRACE (Negative); URINE NITRITE NEGATIVE (Negative); URINE PROTEIN (DIPSTICK) NEGATIVE (Negative); URINE SPECIFIC GRAVITY >= 1.030 (1.003-1.035); URINE UROBILINOGEN 0.2 E.U./dl (0.2-1.0)
[2016-08-11 21:11] VITALS: BP 129/45
[2016-08-12 04:30] VITALS: BP 141/70
[2016-08-12 06:06] LABS: HEMATOCRIT 29.3 % (42.0-52.0); MCH 35.4 pg (26.0-34.0); MCV 104.1 fL (80.0-100.0); RBC 2.82 mil/uL (4.50-6.00); RDW 15.6 % (10.5-14.5); WBC 7.9 thou/uL (4.0-11.0)
[2016-08-12 06:28] LABS: CALCIUM 8.4 mg/dL (8.5-10.1); CREATININE 0.8 mg/dL (0.7-1.3); POTASSIUM 3.3 mmol/L (3.5-5.1)
[2016-08-12 09:06] VITALS: BP 132/65
[2016-08-12 12:20] LABS: TSH 3.676 uIU/mL (0.358-3.740)
[2016-08-12 12:50] LABS: FOLIC ACID 33.5 ng/mL (8.6-58.9)
[2016-08-12 15:49] VITALS: BP 118/60
[2016-08-12 20:00] VITALS: BP 137/73
[2016-08-13 04:00] VITALS: BP 130/77
[2016-08-13 08:10] VITALS: BP 113/61
[2016-08-13 16:25] VITALS: BP 105/64
[2016-08-13 20:00] VITALS: BP 98/46
[2016-08-14 05:00] VITALS: BP 109/62
[2016-08-14 06:16] LABS: HEMATOCRIT 29.7 % (42.0-52.0); HEMOGLOBIN 10.2 gm/dL (14.0-18.0); MCH 35.9 pg (26.0-34.0); MCHC 34.6 g/dL (28.0-37.0); RBC 2.85 mil/uL (4.50-6.00); RDW 15.5 % (10.5-14.5); WBC 5.5 thou/uL (4.0-11.0)
[2016-08-14 06:31] LABS: ALBUMIN 2.8 g/dL (3.4-5.0); CALCIUM 8.5 mg/dL (8.5-10.1); CREATININE 0.9 mg/dL (0.7-1.3); POTASSIUM 3.9 mmol/L (3.5-5.1); TOTAL BILIRUBIN 0.6 mg/dL (<0.1-1.0); TOTAL PROTEIN 5.9 g/dL (6.4-8.2)
[2016-08-14 07:21] VITALS: BP 139/74
[2016-08-14 13:20] VITALS: BP 139/74
[2016-08-14 13:57] VITALS: BP 139/74
== END 2016-08-14 13:48 | disposition home health service (06) | DRG 392 ==
LOC: ER 18:04 → 4E 19:05 → EROBS 19:05 → 4E 21:06
PROVIDERS: Internal Medicine Gastroenterology; Nurse Practitioner; Nurse Practitioner Adult Health
DX: K59.09 Other constipation (principal); S82.144A Nondisplaced bicondylar fracture of right tibia, initial encounter for closed fracture; I42.9 Cardiomyopathy, unspecified; E44.0 Moderate protein-calorie malnutrition; H40.9 Unspecified glaucoma; Z96.89 Presence of other specified functional implants; E78.5 Hyperlipidemia, unspecified; M17.10 Unilateral primary osteoarthritis, unspecified knee; I48.91 Unspecified atrial fibrillation; F11.90 Opioid use, unspecified, uncomplicated; D64.9 Anemia, unspecified; I25.10 Atherosclerotic heart disease of native coronary artery without angina pectoris; Z79.899 Other long term (current) drug therapy; Z98.49 Cataract extraction status, unspecified eye; Z95.810 Presence of automatic (implantable) cardiac defibrillator; Z88.6 Allergy status to analgesic agent; Z95.1 Presence of aortocoronary bypass graft; Z86.010 Personal history of colon polyps; W19.XXXA Unspecified fall, initial encounter; Y93.89 Activity, other specified; Y92.89 Other specified places as the place of occurrence of the external cause; Y99.8 Other external cause status
CPT/HCPCS: 10183

== ENCOUNTER 2016-11-10 15:21 | Emergency (ER) | payer OTHER ==
[~2016-11-10] VITALS: Ht 175.3 cm; Wt 70.3 kg
[~2016-11-10 15:21] MED LIST changes: +ACETAMINOPHEN1 EAC1 PO; +SALINE NASAL SP30 ML INH
[2016-11-10 16:06] LABS: ABSOLUTE NEUTROPHILS 3.5 thou/uL (1.4-8.2); BASOPHILS 0.7 % (0.0-2.0); EOSINOPHILS 2.6 % (0.0-3.0); HEMATOCRIT 35.4 % (42.0-52.0); HEMOGLOBIN 12.2 gm/dL (14.0-18.0); LYMPHOCYTES 24.1 % (24.0-44.0); MCH 36.2 pg (26.0-34.0); MCHC 34.5 g/dL (28.0-37.0); MCV 104.9 fL (80.0-100.0); MONOCYTES 10.1 % (1.0-8.0); PLATELET COUNT 215 thou/uL (150-400); POLYS 62.5 % (36.0-66.0); RBC 3.37 mil/uL (4.50-6.00); RDW 15.2 % (10.5-14.5); WBC 5.5 thou/uL (4.0-11.0)
[2016-11-10 16:07] LABS: MANUAL DIFF NO
[2016-11-10 16:16] LABS: CALCIUM 8.9 mg/dL (8.5-10.1); CREATININE 1.1 mg/dL (0.7-1.3); POTASSIUM 4.2 mmol/L (3.5-5.1)
[2016-11-10 16:21] LABS: PROTIME 10.7 Seconds (9.3-11.4)
[2016-11-10] MEDS ORDERED: HYDROCODONE-AP1 EAC6 PO (17:07)
== END 2016-11-10 17:10 | disposition home or self-care (01) ==
LOC: ER 15:21
PROVIDERS: Nurse Practitioner Family
DX: S22.42XA Multiple fractures of ribs, left side, initial encounter for closed fracture (principal); S42.032A Displaced fracture of lateral end of left clavicle, initial encounter for closed fracture; S51.012A Laceration without foreign body of left elbow, initial encounter; F10.99 Alcohol use, unspecified with unspecified alcohol-induced disorder; Z98.890 Other specified postprocedural states; Z95.5 Presence of coronary angioplasty implant and graft; Z85.820 Personal history of malignant melanoma of skin; Z95.0 Presence of cardiac pacemaker; Z88.5 Allergy status to narcotic agent; Z88.6 Allergy status to analgesic agent; W01.0XXA Fall on same level from slipping, tripping and stumbling without subsequent striking against object, initial encounter; Y93.89 Activity, other specified; Y92.89 Other specified places as the place of occurrence of the external cause; Y99.8 Other external cause status

== ENCOUNTER → 2016-12-22 | Outpatient (CLI) | payer OTHER ==
[~2016-12-22] MED LIST changes: +HYDROCODONE-AP1 EAC6 PO
== END ==
LOC: RAD 13:18
DX: S82.121A Displaced fracture of lateral condyle of right tibia, initial encounter for closed fracture (principal); M81.0 Age-related osteoporosis without current pathological fracture; X58.XXXA Exposure to other specified factors, initial encounter; Y93.89 Activity, other specified; Y92.89 Other specified places as the place of occurrence of the external cause; Y99.8 Other external cause status

== ENCOUNTER 2017-02-18 18:54 | Emergency (ER) | payer OTHER ==
[~2017-02-18] VITALS: Ht 172.7 cm; Wt 70.3 kg
[2017-02-18 19:38] LABS: URINE BILIRUBIN NEGATIVE (Negative); URINE BLOOD 3+ (Negative); URINE COLOR YELLOW; URINE GLUCOSE-RANDOM* NEGATIVE (Negative); URINE KETONES NEGATIVE (Negative); URINE NITRITE NEGATIVE (Negative); URINE PROTEIN (DIPSTICK) TRACE (Negative); URINE SPECIFIC GRAVITY >= 1.030 (1.003-1.035); URINE UROBILINOGEN 0.2 E.U./dl (0.2-1.0)
[2017-02-18 19:49] LABS: SQUAMOUS 0-3 Few /LPF (0-3)
[2017-02-18 19:50] LABS: CASTS None Seen /LPF (None Seen); URINE RBC >20 Many /HPF (0-2); URINE WBC 0-5 Rare /HPF (0-5)
[2017-02-18 19:51] LABS: CALCIUM OXALATE 0-3 Few /LPF (None Seen)
[2017-02-18 20:05] LABS: ABSOLUTE NEUTROPHILS 3.1 thou/uL (1.4-8.2); BASOPHILS 0.5 % (0.0-2.0); EOSINOPHILS 1.5 % (0.0-3.0); HEMATOCRIT 35.5 % (42.0-52.0); HEMOGLOBIN 12.3 gm/dL (14.0-18.0); LYMPHOCYTES 34.3 % (24.0-44.0); MCH 35.8 pg (26.0-34.0); MCHC 34.6 g/dL (28.0-37.0); MCV 103.4 fL (80.0-100.0); MONOCYTES 9.3 % (1.0-8.0); PLATELET COUNT 202 thou/uL (150-400); POLYS 54.4 % (36.0-66.0); RBC 3.43 mil/uL (4.50-6.00); RDW 14.5 % (10.5-14.5); WBC 5.8 thou/uL (4.0-11.0)
[2017-02-18 20:06] LABS: MANUAL DIFF NO
[2017-02-18 20:13] LABS: CALCIUM 9.4 mg/dL (8.5-10.1); CREATININE 1.2 mg/dL (0.7-1.3); POTASSIUM 4.2 mmol/L (3.5-5.1)
[2017-02-18 20:30] LABS: ALBUMIN 3.8 g/dL (3.4-5.0); TOTAL BILIRUBIN 0.2 mg/dL (<0.1-1.0); TOTAL PROTEIN 7.2 g/dL (6.4-8.2)
[2017-02-18] MEDS ORDERED: KEFLEX500 MG PO (21:27)
== END 2017-02-18 22:11 | disposition home or self-care (01) ==
LOC: ER 18:54
PROVIDERS: Physician Assistant
DX: N39.0 Urinary tract infection, site not specified (principal); R31.9 Hematuria, unspecified; F10.99 Alcohol use, unspecified with unspecified alcohol-induced disorder; Z94.7 Corneal transplant status; Z86.79 Personal history of other diseases of the circulatory system; Z98.890 Other specified postprocedural states; Z88.5 Allergy status to narcotic agent; Z88.6 Allergy status to analgesic agent

== ENCOUNTER 2018-02-14 12:44 | Emergency (ER) | payer OTHER ==
[~2018-02-14] VITALS: Ht 167.6 cm; Wt 75.8 kg
--- NOTE | ~2018-02-14 | EKG ---
[address] [address] ELECTROCARDIOGRAM REPORT Name: ROBERTO RENEE TRINA Room #: DEP [facility]#: [id number] Admission: 02/14/18 Attend Phys: Discharge: 02/14/18 Date of : 31 Report #: [id number] THIS REPORT FOR: //name// [facility] ED Test Date: 2018-02-14 Test Time: 13:00:39 Pat Name: ROBERTO RENEE Department: Room: Gender: M Operating Room Assistant: KKODJOVI : 1930 Requested By: Trina Rincon Order Number: [id number] MD: Bandar Maynard Measurements Intervals [place] Rate: 70 P: 209 SD: 107 QRS: -91 QRSD: 187 T: 87 QT: 520 QTc: 562 Interpretive Statements Ventricular-paced complexes No further rhythm analysis attempted due to paced rhythm Compared to ECG 04/03/2015 07:37:22 no significant change was found Electronically Signed On 02-14-2018 16:39:51 CDT by Bandar Maynard [email or web address] <ELECTRONICALLY SIGNED> By: Bandar Maynard MD, [facility] 02/14/18 1639 1300 1300 Bandar Maynard MD, [facility] /EPI
[~2018-02-14 12:44] MED LIST changes: +KEFLEX500 MG PO
[2018-02-14 13:58] LABS: ABSOLUTE NEUTROPHILS 4.6 thou/uL (1.4-8.2); EOSINOPHILS 2.2 % (0.0-3.0); HEMATOCRIT 38.2 % (42.0-52.0); HEMOGLOBIN 13.4 gm/dL (14.0-18.0); LYMPHOCYTES 19.4 % (24.0-44.0); MCHC 34.9 g/dL (28.0-37.0); MONOCYTES 6.6 % (1.0-8.0); PLATELET COUNT 228 thou/uL (150-400); POLYS 70.8 % (36.0-66.0); RBC 3.61 mil/uL (4.50-6.00); WBC 6.5 thou/uL (4.0-11.0)
[2018-02-14 14:23] LABS: ANION GAP 9 mmol/L (7-16); CALCIUM 9.9 mg/dL (8.5-10.1); CHLORIDE 103 mmol/L (98-107); CO2 24 mmol/L (21-32); CREATININE 1.3 mg/dL (0.7-1.3); POTASSIUM 4.6 mmol/L (3.5-5.1); SODIUM 136 mmol/L (136-145)
[2018-02-14 14:24] LABS: BUN 22 mg/dL (7-18); GLUCOSE 127 mg/dL (74-106)
[2018-02-14 14:33] LABS: ALBUMIN 3.6 g/dL (3.4-5.0); DIRECT BILIRUBIN 0.1 mg/dL (<0.1-0.3); TOTAL BILIRUBIN 0.4 mg/dL (<0.1-1.0); TOTAL PROTEIN 7.5 g/dL (6.4-8.2); TROPONIN-I <0.06 ng/mL (<0.06)
== END 2018-02-14 15:57 | disposition home or self-care (01) ==
LOC: ER 12:44
PROVIDERS: Emergency Medicine; Physician Assistant
DX: R06.09 Other forms of dyspnea (principal); R42 Dizziness and giddiness; Z88.1 Allergy status to other antibiotic agents; Z88.2 Allergy status to sulfonamides; Z88.5 Allergy status to narcotic agent; Z88.6 Allergy status to analgesic agent

== ENCOUNTER 2018-04-07 13:42 | Emergency (ER) | payer OTHER ==
[~2018-04-07] VITALS: Ht 170.2 cm; Wt 74.8 kg
[2018-04-07 14:24] LABS: ABSOLUTE NEUTROPHILS 5.5 thou/uL (1.4-8.2); EOSINOPHILS 0.9 % (0.0-3.0); HEMATOCRIT 39.1 % (42.0-52.0); HEMOGLOBIN 13.5 gm/dL (14.0-18.0); LYMPHOCYTES 21.3 % (24.0-44.0); MCH 36.8 pg (26.0-34.0); MCHC 34.5 g/dL (28.0-37.0); MCV 106.5 fL (80.0-100.0); MONOCYTES 7.8 % (1.0-8.0); PLATELET COUNT 188 thou/uL (150-400); RBC 3.67 mil/uL (4.50-6.00)
[2018-04-07 14:31] LABS: CALCIUM 9.6 mg/dL (8.5-10.1); POTASSIUM 4.5 mmol/L (3.5-5.1)
[2018-04-07 14:37] LABS: ALBUMIN 3.8 g/dL (3.4-5.0); TOTAL BILIRUBIN 0.4 mg/dL (<0.1-1.0); TOTAL PROTEIN 7.4 g/dL (6.4-8.2)
[2018-04-07 15:31] LABS: URINE BILIRUBIN NEGATIVE (Negative); URINE BLOOD 3+ (Negative); URINE CLARITY CLEAR; URINE COLOR YELLOW; URINE GLUCOSE-RANDOM* NEGATIVE (Negative); URINE KETONES NEGATIVE (Negative); URINE LEUKOCYTES-REFLEX NEGATIVE (Negative); URINE NITRITE-REFLEX NEGATIVE (Negative); URINE PROTEIN (DIPSTICK) TRACE (Negative); URINE SPECIFIC GRAVITY 1.025 (1.005-1.035); URINE UROBILINOGEN 0.2 E.U./dl (0.2-1.0)
[2018-04-07 15:46] LABS: BACTERIA-REFLEX 1-9 Few /HPF (None Seen); CASTS None Seen /LPF (None Seen); CRYSTALS None Seen /LPF (None Seen); MUCUS 0-3 Light strn/LPF (None Seen); SQUAMOUS 0-3 Few /LPF (0-3)
[2018-04-07 15:47] LABS: URINE RBC >20 Many /HPF (0-2); URINE WBC-REFLEX 0-5 Rare /HPF (0-5)
[2018-04-07 18:58] VITALS: BP 125/62
== END 2018-04-07 17:00 | disposition short-term general hospital (02) ==
LOC: ER 13:42
PROVIDERS: Physician Assistant
DX: N20.1 Calculus of ureter (principal); R11.2 Nausea with vomiting, unspecified; Z88.6 Allergy status to analgesic agent; Z88.1 Allergy status to other antibiotic agents; Z88.5 Allergy status to narcotic agent; Z88.2 Allergy status to sulfonamides; Z88.8 Allergy status to other drugs, medicaments and biological substances; Z95.0 Presence of cardiac pacemaker

== ENCOUNTER 2018-04-15 17:31 | Inpatient (IN) | payer OTHER ==
[~2018-04-15] VITALS: Ht 170.2 cm; Wt 74.8 kg
--- NOTE | ~2018-04-15 | HC ---
[facility] [place] [address] CONSULTATION Name: VÍCTORROBERTO MENA Room #: 363-P ADM IN M.R.#: [id number] Admission: 04/15/18 Attend Phys: Wolf Demarco MD Discharge: Date of : 31 Report #: [id number] THIS REPORT FOR: //name// CC: Wolf Demarco HISTORY OF PRESENT ILLNESS: The patient is an 88-year-old male who presents with a 1-hour episode of right upper extremity weakness. The patient and his were both able to provide the history, although his provided the majority of the history. She states the symptoms lasted approximately one hour. The patient has now returned to his baseline. Apparently, the patient is a cardiology patient of Dr. Ireland. The patient needs his pacemaker battery replaced and this was supposed to be done last week, but it could not be done because the patient developed kidney stones. Typically, she and her go to [place] for the winter, but they will not be going this year because of these medical problems. The patient had an echocardiogram sometime in the past 2 weeks. The patient is on Eliquis. His tells me that he has an ASPIRIN allergy. PAST MEDICAL HISTORY: Stroke, atrial myxoma, gastroesophageal reflux, kidney stones, hyperlipidemia. MEDICATIONS: At home, Eliquis 2.5 mg b.i.d., fluorometholone 5 mL b.i.d., MiraLax 17 grams daily, multivitamin daily, metoprolol 12.5 mg b.i.d., Rapaflo one tablet at bedtime, omeprazole 40 mg b.i.d., Colace 100 mg b.i.d., calcium with vitamin D weekly, Voltaren gel 2 g daily, fluorouracil 1 gram IV weekly, Forteo 2.5 mL daily, simvastatin 20 mg daily, amiodarone 200 mg daily. ALLERGIES: ASPIRIN, LEVOFLOXACIN, MORPHINE, SULFA, TRIMETHOPRIM. PHYSICAL EXAMINATION: VITAL SIGNS: Temperature 36.5, pulse rate 69, respiratory rate 20, blood pressure 141/82, bedside pulse oximetry 98% on room air. NEUROLOGIC: Cranial nerves 2-12 are grossly intact. Motor exam demonstrates symmetrical strength in all 4 extremities with tone and bulk normal. Reflexes are symmetrical throughout. Coordination reveals no evidence of dysmetria. LABORATORY DATA: White blood cell count 6; hemoglobin 12.1; hematocrit 35.1; MCV 105.9; platelet count 209,000. INR 1. Blood gas, pH 7.444, pCO2 39.2, pO2 67.2, oxygen saturation 92.4%. Chemistry: Sodium 141, potassium 4.1, chloride 105, carbon dioxide 24, BUN 19, creatinine 0.9, glucose 113. IMAGING: CT scan of the head demonstrates no acute findings. The patient has multifocal areas of chronic infarction with uonarlqj-cn-lrrtux microvascular disease. CT angiogram demonstrates no evidence of high-[place] [address] CONSULTATION Name: FELICITACHELYROBERTO TRINA Room #: 363-P [facility] IN M.R.#: [id number] Admission: 04/15/18 Attend Phys: Wolf Demarco MD Discharge: Date of : 31 Report #: [id number] IMPRESSION: This patient may have had a transient ischemic attack. He is on Eliquis 2.5 mg twice a day and should continue this medication. He does have an echocardiogram ordered, although I do not know this needs to be done as he apparently had an echocardiogram done, not by Dr. Ireland, but by Dr. Tijerina approximately 2 weeks ago. At this point, I would continue Eliquis. Unfortunately, ASPIRIN cannot be added to his therapy as he is allergic to this. I thank you for your kind referral of the patient. By: 1204 1226 Marcie Moran DO /nt
--- NOTE | ~2018-04-15 | EKG ---
[address] [address] ELECTROCARDIOGRAM REPORT Name: ROBERTO RENEE Room #: 363-P [facility] M.R.#: [id number] Admission: 04/15/18 Attend Phys: Wolf Demarco MD Discharge: 04/16/18 Date of : 32 Report #: [id number] THIS REPORT FOR: //name// [facility] ED Test Date: 2018-04-15 Test Time: 18:06:51 Pat Name: ROBERTO HITCHCOCKJAYESHCHELY Department: Room: [facility] Gender: M Dance [employer] Manager: NICKIE : [id number] Requested By: Susi Gordon Order Number: [id number] MD: Francisco Tijerina Measurements Intervals [place] Rate: 70 P: 196 GA: 119 QRS: -89 QRSD: 179 T: 93 QT: 525 QTc: 567 Interpretive Statements Atrial-sensed ventricular-paced complexes No further analysis attempted due to paced rhythm Compared to ECG 02/14/2018 13:00:39 No significant changes Electronically Signed On 04-17-2018 20:26:23 [employer]ITY ENGINEER by Francisco Tijerina [email or web address] <ELECTRONICALLY SIGNED> By: Francisco Tijerina MD 04/17/182025 05 05 Francisco Tijerina MD /EPI
[2018-04-15 17:34] VITALS: BP 147/73
[2018-04-15 18:24] LABS: BE(vivo) 2.1 mmol/L (-2 to +3); HCO3 26.3 mmol/L (22.0-26.0); PCO2 39.2 mmHg (35.0-45.0); PO2 67.2 mmHg (80.0-100.0); pH 7.444 (7.360-7.450); sO2 94.1 % (92.0-98.0)
[2018-04-15 18:25] LABS: ABSOLUTE NEUTROPHILS 3.7 thou/uL (1.4-8.2); BASOPHILS 0.2 % (0.0-2.0); EOSINOPHILS 2.5 % (0.0-3.0); HEMATOCRIT 35.1 % (42.0-52.0); HEMOGLOBIN 12.1 gm/dL (14.0-18.0); LYMPHOCYTES 26.5 % (24.0-44.0); MCH 36.6 pg (26.0-34.0); MCHC 34.6 g/dL (28.0-37.0); MCV 105.9 fL (80.0-100.0); PLATELET COUNT 209 thou/uL (150-400); POLYS 61.8 % (36.0-66.0); RBC 3.32 mil/uL (4.50-6.00); RDW 14.3 % (10.5-14.5)
[2018-04-15 18:29] LABS: POC CA IONIZED 4.7 mg/dL (4.5-5.3); POC CREATININE 0.9 mg/dL (0.6-1.3); POC HEMOGLOBIN 10.9 g/dL (14.0-18.0); POC POTASSIUM 4.1 mmol/L (3.5-5.1)
[2018-04-15 18:30] LABS: APTT 25.3 Seconds (24.5-32.8); PROTIME 10.8 Seconds (9.3-11.4)
[2018-04-15] MEDS ORDERED: CALCIUM 600 +1 EAC1 PO (20:09)
[2018-04-15] MEDS ORDERED: VOLTAREN GEL 1100 G2 TOP (20:11)
[2018-04-15] MEDS ORDERED: FLUOROURAC1 GM/20 ML IV (20:13)
[2018-04-15] MEDS ORDERED: FORTEO750 MCG/3 INJECTION (20:15)
[2018-04-15] MEDS ORDERED: KETOCONAZOLE10 GM MC (20:17)
[2018-04-15] MEDS ORDERED: SIMVASTATIN20 MG PO (20:20)
[2018-04-15 20:22] VITALS: BP 150/69
[2018-04-15 20:48] VITALS: BP 167/71
[2018-04-15 23:39] VITALS: BP 146/83
[2018-04-16 04:13] VITALS: BP 145/75
[2018-04-16 07:46] VITALS: BP 141/82
[2018-04-16 11:51] VITALS: BP 142/83
[2018-04-16 12:44] VITALS: BP 142/83
== END 2018-04-16 14:20 | disposition home or self-care (01) | DRG 69 ==
LOC: ER 17:31 → EROBS 19:25 → 3W 20:48
PROVIDERS: Physician Assistant
DX: G45.9 Transient cerebral ischemic attack, unspecified (principal); I48.92 Unspecified atrial flutter; H40.9 Unspecified glaucoma; K21.9 Gastro-esophageal reflux disease without esophagitis; E78.5 Hyperlipidemia, unspecified; I48.91 Unspecified atrial fibrillation; I50.9 Heart failure, unspecified; M81.0 Age-related osteoporosis without current pathological fracture; H91.93 Unspecified hearing loss, bilateral; N40.0 Benign prostatic hyperplasia without lower urinary tract symptoms; Z94.7 Corneal transplant status; Z85.820 Personal history of malignant melanoma of skin; I25.2 Old myocardial infarction; Z95.1 Presence of aortocoronary bypass graft; Z79.01 Long term (current) use of anticoagulants; Z87.442 Personal history of urinary calculi; Z79.899 Other long term (current) drug therapy; Z88.6 Allergy status to analgesic agent; Z88.1 Allergy status to other antibiotic agents; Z88.5 Allergy status to narcotic agent; Z88.2 Allergy status to sulfonamides; Z28.21 Immunization not carried out because of patient refusal
CPT/HCPCS: 10879